=== PATIENT | female | born 1995 | race Two or more races ===

== ENCOUNTER 2017-07-05 19:52 | Emergency (ER) | payer OTHER ==
[~2017-07-05] VITALS: Ht 160 cm; Wt 88.5 kg
[2017-07-05 20:00] VITALS: BP 149/100
== END 2017-07-05 22:38 | disposition home or self-care (01) ==
LOC: ER 20:01
DX: H66.93 Otitis media, unspecified, bilateral (principal); I10 Essential (primary) hypertension; Z90.49 Acquired absence of other specified parts of digestive tract; R74.8 Abnormal levels of other serum enzymes; Z76.0 Encounter for issue of repeat prescription
CPT/HCPCS: 74176; 81025